=== PATIENT | male | born 1940 | race Caucasian/White ===

== ENCOUNTER 2017-03-27 07:07 | Outpatient (CLI) | payer MEDICARE, OTHER ==
[2017-03-27 08:13] LABS: #Basophils 0.1 thou/uL (0.0-0.2); #Eosinphils 0.2 thou/uL (0.0-0.7); #Lymphocytes 1.8 thou/uL (1.20-3.40); #Monocytes 0.5 thou/uL (0.11-0.59); %Basophils 1.2 % (0.0-1.0); %Eosinophils 4.4 % (0.0-10.0); %Lymphocytes 40.5 % (21.0-51.0); %Monocytes 11.1 % (0.0-10.0); %Neutrophils 42.8 % (42.0-75.0); Hemoglobin 13.9 g/dL (14.0-18.0); Mean Corpuscular HGB CONC 33.8 g/dL (32.0-36.0); Mean Corpuscular Hemoglobin 31.6 pg (27.0-31.0); Mean Corpuscular Volume 93.4 fl (80.0-94.0); Mean Platelet Volume 8.9 fL (7.4-10.4); Platelet Count 132 thou/uL (130-400); RBC Distribution Width 12.2 % (11.5-14.5); Red Blood Cell (RBC) Count 4.39 mill/uL (4.70-6.10); White Blood Cell (WBC) Count 4.5 thou/uL (4.8-10.8)
[2017-03-27 08:30] LABS: ALT (SGPT) 20 U/L (8-55); AST (SGOT) 24 U/L (5-34); Albumin 3.9 g/dL (3.4-4.8); Alkaline Phosphatase 64 U/L (40-150); Anion Gap 12 mmol/L (10-20); BUN (Urea Nitrogen) 28 mg/dL (8.4-25.7); Bilirubin, Direct 0.3 mg/dL (0.1-0.3); Bilirubin, Total 0.7 mg/dL (0.2-1.2); Calc. Creatinine Clearance 0 mL/min (70-130); Carbon Dioxide 23 mmol/L (23-31); Cardiac Risk 3.4 (Less than 4.5); Chloride 107 mmol/L (98-107); Cholesterol 125 mg/dl (< 200 Desired); Estimated GFR-MDRD 85; Globulin 2.9 g/dL (2.4-3.5); Glucose 85 mg/dL (83-110); HDL Cholesterol 37 mg/dL (>60 Neg Risk); LDL Cholesterol, Calculated 66 mg/dL; Potassium 4.6 mmol/L (3.5-5.1); Protein, Total 6.8 g/dL (5.8-8.1); Sodium 137 mmol/L (136-145); Triglycerides 108 mg/dL (Less than 150)
== END 2017-03-27 07:08 | disposition home or self-care (01) ==
LOC: MADLABBHPM 07:07
PROVIDERS: ATTEND Internal Medicine Cardiovascular Disease
DX: E78.00 Pure hypercholesterolemia, unspecified (principal); I48.91 Unspecified atrial fibrillation; I10 Essential (primary) hypertension
CPT/HCPCS: 36415; 80053; 80061; 82248; 85025; G0103

== ENCOUNTER 2017-06-13 10:25 | Emergency (ER) | payer MEDICARE, OTHER ==
[2017-06-13 11:18] LABS: #Basophils 0.1 thou/uL (0.0-0.2); #Eosinphils 0.2 thou/uL (0.0-0.7); #Lymphocytes 1.5 thou/uL (1.20-3.40); #Monocytes 0.5 thou/uL (0.11-0.59); #Neutrophils 3.2 thou/uL (1.40-6.50); %Eosinophils 4.4 % (0.0-10.0); %Lymphocytes 26.8 % (21.0-51.0); %Monocytes 9.7 % (0.0-10.0); %Neutrophils 58.1 % (42.0-75.0); Hemoglobin 13.4 g/dL (14.0-18.0); Mean Corpuscular HGB CONC 33.2 g/dL (32.0-36.0); Mean Corpuscular Volume 93.3 fl (80.0-94.0); Platelet Count 156 thou/uL (130-400); RBC Distribution Width 11.9 % (11.5-14.5); Red Blood Cell (RBC) Count 4.31 mill/uL (4.70-6.10); White Blood Cell (WBC) Count 5.5 thou/uL (4.8-10.8)
[2017-06-13 11:30] LABS: ALT (SGPT) 21 U/L (8-55); AST (SGOT) 26 U/L (5-34); Alkaline Phosphatase 63 U/L (40-150); Anion Gap 13 mmol/L (10-20); BUN (Urea Nitrogen) 28 mg/dL (8.4-25.7); Bilirubin, Total 0.8 mg/dL (0.2-1.2); CK (CPK) 217 U/L (30-200); Calc. Creatinine Clearance 0 mL/min (70-130); Calcium 9.5 mg/dL (7.8-10.44); Carbon Dioxide 25 mmol/L (23-31); Chloride 106 mmol/L (98-107); Estimated GFR-MDRD 68; Glucose 120 mg/dL (83-110); Potassium 5.3 mmol/L (3.5-5.1); Sodium 139 mmol/L (136-145)
[2017-06-13 11:35] LABS: CKMB 3.6 ng/mL (0-6.6); Troponin I Less than 0.010 ng/mL (< 0.028)
== END 2017-06-13 12:40 | disposition home or self-care (01) ==
LOC: MADERS 10:25
DX: I95.9 Hypotension, unspecified (principal); I10 Essential (primary) hypertension; I48.91 Unspecified atrial fibrillation; F17.220 Nicotine dependence, chewing tobacco, uncomplicated; Z79.899 Other long term (current) drug therapy
CPT/HCPCS: 36415; 80053; 82553; 83880; 84484; 85025; 99284

== ENCOUNTER 2020-02-26 08:36 | Emergency (ER) | payer MEDICARE ==
[2020-02-26] MEDS ORDERED: Lisinopril 10 MG TAB ONE (09:33)
== END 2020-02-26 09:46 | disposition home or self-care (01) ==
LOC: MADERS 08:36
DX: I10 Essential (primary) hypertension (principal); R51 Headache; M19.90 Unspecified osteoarthritis, unspecified site; K21.9 Gastro-esophageal reflux disease without esophagitis; E78.5 Hyperlipidemia, unspecified; I48.91 Unspecified atrial fibrillation; F17.220 Nicotine dependence, chewing tobacco, uncomplicated; Z79.899 Other long term (current) drug therapy
CPT/HCPCS: 99283

== ENCOUNTER 2020-03-04 07:51 | Emergency (ER) | payer MEDICARE ==
[2020-03-04] MEDS ORDERED: Hydrochlorothiazide 25 MG TAB ONE (08:29)
== END 2020-03-04 08:50 | disposition home or self-care (01) ==
LOC: MADERS 07:51
DX: I10 Essential (primary) hypertension (principal); K21.9 Gastro-esophageal reflux disease without esophagitis; I48.91 Unspecified atrial fibrillation; E78.00 Pure hypercholesterolemia, unspecified; E78.5 Hyperlipidemia, unspecified; F17.220 Nicotine dependence, chewing tobacco, uncomplicated; Z79.899 Other long term (current) drug therapy
CPT/HCPCS: 99283

== ENCOUNTER 2020-03-06 17:20 | Emergency (ER) | payer MEDICARE ==
[2020-03-06] MEDS ORDERED: Tetracaine 0.5% OPHTH SOLN/PF 4 ML BOT ONE ×2 (18:26→18:50)
[2020-03-06] MEDS ORDERED: Fluorescein Opthalmic Strip ONE (18:58)
[2020-03-06] MEDS ORDERED: Erythromycin Base 0.5% Ophth Oint 3.5 gm Tube ONE (20:08)
== END 2020-03-06 20:17 | disposition home or self-care (01) ==
LOC: MADERS 17:20
DX: T15.01XA Foreign body in cornea, right eye, initial encounter (principal); K21.9 Gastro-esophageal reflux disease without esophagitis; E78.5 Hyperlipidemia, unspecified; E78.00 Pure hypercholesterolemia, unspecified; I10 Essential (primary) hypertension; I48.91 Unspecified atrial fibrillation; F17.220 Nicotine dependence, chewing tobacco, uncomplicated; Z79.899 Other long term (current) drug therapy; M19.90 Unspecified osteoarthritis, unspecified site
CPT/HCPCS: 65220

== ENCOUNTER 2020-05-05 19:39 | Emergency (ER) | payer MEDICARE ==
[2020-05-05] MEDS ORDERED: Fluorescein Opthalmic Strip ONE (19:53)
[2020-05-05] MEDS ORDERED: Tetracaine 0.5% PF 4 ML BOT ONE (19:55)
== END 2020-05-05 21:05 | disposition home or self-care (01) ==
LOC: MADERS 19:39
DX: H20.9 Unspecified iridocyclitis (principal); K21.9 Gastro-esophageal reflux disease without esophagitis; M19.90 Unspecified osteoarthritis, unspecified site; E78.5 Hyperlipidemia, unspecified; I10 Essential (primary) hypertension; I48.91 Unspecified atrial fibrillation; E78.00 Pure hypercholesterolemia, unspecified; F17.220 Nicotine dependence, chewing tobacco, uncomplicated; Z79.899 Other long term (current) drug therapy; Z79.01 Long term (current) use of anticoagulants
CPT/HCPCS: 99283

== ENCOUNTER 2020-08-07 17:05 | Emergency (ER) | payer MEDICARE ==
[~2020-08-07 17:05] MED LIST: Iopamidol 370 76% 125 ML VIAL FS ONE
[2020-08-07 17:51] LABS: #Eosinphils 0.2 thou/uL (0.0-0.7); #Lymphocytes 1.1 thou/uL (1.20-3.40); #Monocytes 0.5 thou/uL (0.11-0.59); %Basophils 0.7 % (0.0-1.0); %Eosinophils 3.4 % (0.0-10.0); %Lymphocytes 23.5 % (21.0-51.0); %Neutrophils 62.5 % (42.0-75.0); Mean Corpuscular HGB CONC 30.5 g/dL (32.0-36.0); Mean Corpuscular Hemoglobin 25.4 pg (27.0-31.0); Mean Corpuscular Volume 83.3 fL (78.0-98.0); Mean Platelet Volume 7.4 fL (7.4-10.4); Platelet Count 184 thou/uL (130-400); RBC Distribution Width 14.8 % (11.5-14.5); Red Blood Cell (RBC) Count 3.93 mill/uL (4.70-6.10); White Blood Cell (WBC) Count 4.8 thou/uL (4.8-10.8)
[2020-08-07] MEDS ORDERED: Nitroglycerin 2% Ointment 1 INCH/1 GM Packet ONE (17:55)
[2020-08-07] MEDS ORDERED: Aspirin Chewable 81 MG TAB ONE (17:55)
[2020-08-07 18:06] LABS: ALT (SGPT) 9 U/L (8-55); AST (SGOT) 16 U/L (5-34); Albumin 3.8 g/dL (3.4-4.8); Alkaline Phosphatase 94 U/L (40-110); Anion Gap 16 mmol/L (10-20); BUN (Urea Nitrogen) 12 mg/dL (8.4-25.7); Bilirubin, Total 0.6 mg/dL (0.2-1.2); Calc. Creatinine Clearance 0 mL/min (70-130); Calcium 8.5 mg/dL (7.8-10.44); Carbon Dioxide 27 mmol/L (23-31); Chloride 104 mmol/L (98-107); Estimated GFR-MDRD 83; Glucose 91 mg/dL (83-110); Lipase 19 U/L (8-78); Potassium 3.5 mmol/L (3.5-5.1); Protein, Total 6.8 g/dL (5.8-8.1); Sodium 143 mmol/L (136-145)
--- NOTE | 2020-08-07 19:29 | CT ---
CTA CHEST WITH CONTRAST: 08/07/20 Axial tomograms obtained following angio protocol with multiplanar reconstruction and 3D postprocessi ng. INDICATIONS: Dyspnea. Elevated D-dimer. Pulmonary arteries are well opacified. There is no evidence of pulmonary embolus. Thoracic aorta show s no evidence of dissection or aneurysm. There is mediastinal and hilar adenopathy. There are small bilateral pleural effusions. There is vasc ular congestion and interstitial congestion with ground glass opacity bilaterally suggesting edema. IMPRESSION: 1. No evidence of pulmonary embolus. 2. Nonspecific mediastinal and hilar adenopathy. 3. Small bilateral effusions. 4. Cardiomegaly with vascular congestion, interstitial congestion and ground glass opacity consi stent with edema. POS: [facility]W
[2020-08-07] MEDS ORDERED: Furosemide 40 MG/4 ML VIAL ONE (19:33)
[2020-08-07] MEDS ORDERED: Sodium Chloride 0.9% 250 ML 250 ML ONE (19:33)
--- NOTE | 2020-08-07 19:33 | RAD ---
LEFT TIBIA AND FIBULA: 08/07/20 Total of four views. AP and lateral views obtained. HISTORY: Injury. No comparison. FINDINGS: There is deformity of the proximal fibula shaft. I do not define cortical fracture or disruption and this has the appearance of old healed fracture. Recommend clinical correlation regarding prior injury and site of tenderness. There is a linear lucency seen in the mid shaft of the tibia which appears to represent a prominent v ascular line. IMPRESSION: 1. Deformity of the proximal fibular diaphysis. No definite cortical fracture or disruption is s een and findings suggest old injury. Recommend clinical correlation. If there is tenderness at this s ite, follow-up is recommended. 2. Linear lucency running parallel to the shaft of the tibia is consistent with a nutrient vesse l. POS: AGW
== END 2020-08-07 20:13 | disposition short-term general hospital (02) ==
LOC: MADERS 17:05
DX: I11.0 Hypertensive heart disease with heart failure (principal); I50.9 Heart failure, unspecified; D64.9 Anemia, unspecified; R60.0 Localized edema; K21.9 Gastro-esophageal reflux disease without esophagitis; M19.90 Unspecified osteoarthritis, unspecified site; E78.5 Hyperlipidemia, unspecified; E78.00 Pure hypercholesterolemia, unspecified; I48.91 Unspecified atrial fibrillation; F17.220 Nicotine dependence, chewing tobacco, uncomplicated; Z79.01 Long term (current) use of anticoagulants; Z79.899 Other long term (current) drug therapy
CPT/HCPCS: 36415; 71275; 80053; 83690; 83880; 84484; 85025; 85379; 93005; 96374; J1940; J7050; Q9967

== ENCOUNTER 2021-09-02 06:34 | Outpatient (CLI) | payer MEDICARE ==
[2021-09-02 07:11] LABS: ALT (SGPT) 12 U/L (8-55); AST (SGOT) 20 U/L (5-34); Alkaline Phosphatase 82 U/L (40-110); Anion Gap 11 mmol/L (10-20); BUN (Urea Nitrogen) 15 mg/dL (8.4-25.7); Bilirubin, Total 0.7 mg/dL (0.2-1.2); Calc. Creatinine Clearance 0 mL/min (70-130); Calcium 8.9 mg/dL (7.8-10.44); Carbon Dioxide 28 mmol/L (23-31); Cardiac Risk 3.5 (Less than 4.5); Chloride 108 mmol/L (98-107); Cholesterol 127 mg/dl (< 200 Desired); Globulin 2.4 g/dL (2.4-3.5); Glucose 102 mg/dL (83-110); HDL Cholesterol 36 mg/dL (>60 Neg Risk); LDL Cholesterol, Calculated 81 mg/dL; Potassium 4.4 mmol/L (3.5-5.1); Protein, Total 6.4 g/dL (5.8-8.1); Sodium 143 mmol/L (136-145); Triglycerides 52 mg/dL (Less than 150)
== END 2021-09-02 06:35 | disposition home or self-care (01) ==
LOC: MADLAB 06:34
PROVIDERS: ATTEND Nurse Practitioner Family
DX: E78.00 Pure hypercholesterolemia, unspecified (principal)
CPT/HCPCS: 36415; 80053; 80061

== ENCOUNTER 2024-09-19 06:12 | Outpatient (CLI) | payer MEDICARE ==
[2024-09-19 07:11] LABS: Anion Gap 13 mmol/L (10-20); BUN (Urea Nitrogen) 17 mg/dL (8.4-25.7); Calc. Creatinine Clearance 0 mL/min (70-130); Carbon Dioxide 24 mmol/L (23-31); Chloride 107 mmol/L (98-107); Potassium 4.2 mmol/L (3.5-5.1); Sodium 140 mmol/L (136-145)
[2024-09-19 07:12] LABS: ALT (SGPT) 11 U/L (8-55); AST (SGOT) 19 U/L (5-34); Albumin 3.8 g/dL (3.4-4.8); Alkaline Phosphatase 71 U/L (40-110); Bilirubin, Total 0.8 mg/dL (0.2-1.2); Calcium 9.5 mg/dL (7.8-10.44); Cardiac Risk 3.6 (Less than 4.5); Cholesterol 138 mg/dl (< 200 Desired); Estimated GFR 70; Globulin 3.1 g/dL (2.4-3.5); Glucose 93 mg/dL (83-110); HDL Cholesterol 38 mg/dL (>60 Neg Risk); LDL Cholesterol, Calculated 88 mg/dL; Protein, Total 6.9 g/dL (5.8-8.1); Triglycerides 61 mg/dL (Less than 150)
== END 2024-09-19 06:13 | disposition home or self-care (01) ==
LOC: MADLAB 06:12
PROVIDERS: ATTEND Nurse Practitioner Family
DX: I10 Essential (primary) hypertension (principal)
CPT/HCPCS: 36415; 80053; 80061

== ENCOUNTER 2025-08-06 08:41 | Emergency (ER) | payer MEDICARE | END 2025-08-06 10:27 | disposition home or self-care (01) | LOC: MADERS 08:41 | DX: S22.42XA Multiple fractures of ribs, left side, initial encounter for closed fracture (principal); F17.220 Nicotine dependence, chewing tobacco, uncomplicated; I48.91 Unspecified atrial fibrillation; I10 Essential (primary) hypertension; E78.00 Pure hypercholesterolemia, unspecified; Z79.01 Long term (current) use of anticoagulants; Z79.899 Other long term (current) drug therapy; W19.XXXA Unspecified fall, initial encounter | CPT/HCPCS: 99283 ==

== ENCOUNTER 2025-08-13 18:28 | Emergency (ER) | payer MEDICARE ==
[2025-08-13 19:21] LABS: Glucose, Urine (Dipstick) Negative (Negative); Leukocyte Moderate (Negative); Protein, Urine (Dipstick) > or equal to 300 mg/dL (Neg-Trace); Specific Gravity, Urine 1.020 (1.005-1.030)
[2025-08-13 19:29] LABS: Hematocrit 41.4 % (42.0-52.0); Hemoglobin 12.8 g/dL (14.0-18.0); Mean Corpuscular Hemoglobin 26.9 pg (27.0-31.0); Mean Corpuscular Volume 86.6 fl (78.0-98.0); Platelet Count 199 10x3/uL (130-400); Red Blood Cell (RBC) Count 4.78 mill/uL (4.70-6.10); White Blood Cell (WBC) Count 6.1 10x3/uL (4.8-10.8)
[2025-08-13 19:37] LABS: ALT (SGPT) 10 U/L (Less than 45); AST (SGOT) 22 U/L (11-34); Albumin 3.9 g/dL (3.1-4.5); Alkaline Phosphatase 78 U/L (40-110); Anion Gap 17 mmol/L (10-20); BUN (Urea Nitrogen) 17 mg/dL (8.4-25.7); Bacteria/HPF 4+ HPF (None Seen); Bilirubin, Total 1.6 mg/dL (0.3-1.2); CAUTI Indications for Culture Pelvic or flank pain; Calc. Creatinine Clearance 0 mL/min (70-130); Calcium 9.0 mg/dL (7.8-10.44); Carbon Dioxide 22 mmol/L (23-31); Chloride 101 mmol/L (98-107); Globulin 3.3 g/dL (2.4-3.5); Glucose 106 mg/dL (83-110); Potassium 4.0 mmol/L (3.5-5.1); RBC/HPF Greater than 50 HPF (0-3); Sodium 136 mmol/L (136-145); Urine Culture Reflex Yes Yes; WBC/HPF Greater Than 50 HPF (0-3)
[2025-08-13 19:46] LABS: MDiff Complete? YES; Manual Diff?? YES
[2025-08-13 19:47] LABS: Platelet Adequacy Comment Appears Adequate
[2025-08-13] MEDS ORDERED: cefTRIAXone (ROCEPHIN) 1 GM VIAL ONE (19:48)
== END 2025-08-13 21:13 | disposition home or self-care (01) ==
LOC: MADERS 18:28
DX: N10 Acute pyelonephritis (principal); N39.0 Urinary tract infection, site not specified; I10 Essential (primary) hypertension; E78.00 Pure hypercholesterolemia, unspecified; I48.91 Unspecified atrial fibrillation; F17.220 Nicotine dependence, chewing tobacco, uncomplicated; Z79.899 Other long term (current) drug therapy; Z79.01 Long term (current) use of anticoagulants
CPT/HCPCS: 71046; 80053; 81001; 83605; 85025; 87040; 87086; J0696; J7030; 87077; 87149; 96365